=== PATIENT | female | born 1955 | race Caucasian/White ===

== ENCOUNTER → 2019-04-19 10:18 | Outpatient (BNVA) | payer BC, SELFPAY | PROVIDERS: Family Provider Registered Nurse; PCP Registered Nurse; Visit Provider Registered Nurse | DX: I82.461 Acute embolism and thrombosis of right calf muscular vein (principal); E53.8 Deficiency of other specified B group vitamins; E03.9 Hypothyroidism, unspecified | CPT/HCPCS: 82607; 84443 ==

== ENCOUNTER 2019-04-29 09:46 | Emergency (ER) | payer BC, SELFPAY ==
[2019-04-29 10:21] VITALS: BP 113/85; PULSE 75; RESP 20; TEMP 36.7; O2SAT 95; BMI 27.4
--- NOTE | 2019-04-29 10:30 | ED_ITS ---
Entered by Jack Enriquez, acting as scribe for Apr 29, 2019 09:46 HPI - Chest Pain General: Chief Complaint: Chest Pain Stated Complaint: Chest pains Time Seen by Provider: 04/29/19 10:30 History of Present Illness: HPI narrative: 64 yo female presents with chest pain. Pt has leg swelling. Pt has alzheimers and she thinks her leg is broken. Son states that pt has been complaining of pain in her right leg for a few days. Patient was recently diagnosed with a DVT in her right leg. There is also 1 episode where she complained about some chest discomfort. She is currently taking Eliquis. MD complaint: chest pain Onset (ago): day(s) Timing of current episode: constant Pain radiation: none Severity: moderate Quality: aching Associated symptoms: Reports abdominal pain, dyspnea, fever(s) and nausea; Deny palpitations, syncope or vomiting Review of Systems Const: Reports: fever; Denies: chills, body aches, fatigue, malaise or night sweats Eyes: Denies: change in vision or blurry vision ENMT: Denies: throat pain, oral sores/lesions, dental pain, nasal discharge or nasal congestion Card: Reports: chest pain; Denies: palpitations, irregular heart rhythm, edema, syncope, shortness of breath on exertion, shortness of breath when lying down or leg pain with exertion Resp: Reports: shortness of breath; Denies: productive cough, non-productive cough or wheezing GI: Reports: abdominal pain and nausea; Denies: vomiting, vomiting blood, coffee grounds in vomit, difficulty swallowing, heartburn/indigestion, diarrhea, constipation, cramping, blood in stool or black tarry stool : Denies: flank pain, painful urination, urinary frequency, urinary urgency, urinary incontinence or blood in urine Musc: Reports: extremity pain (right leg pain); Denies: neck pain, back pain, extremity swelling, joint pain or joint swelling Skin/Breast: Denies: rash, itching or redness Neuro: Denies: headache, numbness in extremities, weakness in extremities, changes in sensation, lack of coordination, difficulty walking, frequent falls, dizziness, vertigo or confusion Psych: Denies: anxiety, depression, loss of interest, visual hallucinations, auditory hallucinations, suicidal ideation or homicidal ideation Endo: Denies: excessive urination, excessive thirst, tired all the time or cold intolerance Rip/Lymph: Denies: easy bruising, easy bleeding, petechiae, enlarged lymph nodes or tender lymph nodes PFSH ED PFSH: Statuses (acute, chronic, etc) shown below reflect problem list status as previously entered and may not be historically accurate Medical History Alzheimers disease (Acute) B12 deficiency (Chronic) Constipation (Chronic) Hypothyroid (Chronic) Surgical History Hx of appendectomy (Acute) Hx of section (Acute) Hx of tubal ligation (Acute) Social History Smoking and tobacco status: never smoked Physical Exam Const: COMMON NORMALS: average body habitus GENERAL APPEARANCE: cooperative, comfortable, well kempt and well developed NUTRITIONAL APPEARANCE: not obese ORIENTATION/CONSCIOUSNESS: Yes awake HENMT: COMMON NORMALS: normocephalic, head/scalp atraumatic, EAC's normal, TM's normal bilaterally, external nose normal, moist oral mucous membranes and oropharynx normal HEAD & SCALP: normocephalic and atraumatic NOSE: external nose normal EXTERNAL AUDITORY CANAL: EAC's normal TYMPANIC MEMBRANE: TM's normal bilaterally MOUTH: oral and palatal mucosa normal, lip normal and tongue normal THROAT: posterior oropharynx normal and tonsils normal Eye: COMMON NORMALS: PERRL, EOMs intact bilaterally, conjunctivae normal and no scleral icterus CONJUNCTIVA: Yes conjunctivae normal PUPIL: Yes PERRL Neck/C-Spine: COMMON NORMALS: full ROM, no lymphadenopathy, supple, no meningeal signs and thyroid normal THYROID: thyroid normal and asymmetrical Lymph: LYMPHATIC: no lymphadenopathy noted Resp: COMMON NORMALS: normal respiratory effort, no retractions, no use of accessory muscles and clear to auscultation bilaterally AUSCULTATION: clear to auscultation bilaterally Cardio: COMMON NORMALS: regular rate and regular rhythm RATE: regular rate RHYTHM: regular rhythm HEART SOUNDS: no murmurs GI: COMMON NORMALS: normal to inspection, nondistended, normoactive bowel sounds, soft to palpation and no hepatosplenomegaly PALPATION: Yes soft and Yes no hepatosplenomegaly : COMMON NORMALS: Yes no CVA tenderness BLADDER/KIDNEY EXAM: Yes no CVA tenderness Back/Pelvis: COMMON NORMALS: no CVA tenderness LUMBAR SPINE/LOWER BACK: Yes normal to inspection Extremity: COMMON NORMALS: no clubbing, cyanosis or edema, no calf tenderness and no pedal edema Neuro: MENINGEAL SIGNS: Yes no meningeal signs Psych: APPEARANCE: Yes well kempt Skin: COMMON NORMALS: no rashes or lesions noted and skin turgor normal GENERAL SKIN EXAM: no rashes or lesions noted and turgor normal Course ED course: CTA chest negative. Continue Audelia discussed different possibilities of also start her on Pepcid for now. We will recheck with her primary care doctor within the week. If worsens or change return. Discussed possibly doing stress testing for cardiac evaluation however given her Alzheimer's state family did not feel they would be likely to pursue much regardless of the results. Additionally she would most likely need to be sedated in order to do the scan portion of the sestamibi stress test which they also were not inclined to do. Vital Signs: Vital signs: Vital Signs Temperature 98.1 F 04/29/19 10:21 Pulse Rate 78 04/29/19 13:26 Respiratory Rate 18 04/29/19 13:26 Blood Pressure 146/94 04/29/19 13:26 Pulse Oximetry 97 04/29/19 13:26 MDM - Chest Pain Lab Data: Labs: Lab Results 04/29/19 04/29/19 Range/Units 10:50 10:50 WBC 5.0 (4.0-10.0) 10^3/ uL RBC 4.48 (4.1-5.3) 10^6/u L Hgb 13.4 (11.5-15.3) g/dL Hct 40.8 (37.0-47.0) % MCV 91.1 (81-99) fL MCH 29.9 (28.0-34.0) pg MCHC 32.8 (30.0-36.0) g/dL RDW 12.5 (12.1-15.1) % Plt Count 203 (130-400) 10^3/c mm MPV 9.9 (7.4-10.4) fL Neut % (Auto) 65.8 % Lymph % (Auto) 23.2 % [place] % (Auto) 6.0 % Eos % (Auto) 3.8 % Baso % (Auto) 1.2 % Neut # (Auto) 3.3 (1.8-7.7) 10^3/u L Lymph # (Auto) 1.2 (0.8-4.8) 10^3/u L [place] # (Auto) 0.3 (0.2-0.9) 10^3/u L Eos # (Auto) 0.2 (0.0-0.8) 10^3/u L Baso # (Auto) 0.1 (0.0-0.1) 10^3/u L Nucleated RBC % (a uto) 0 % Nucleated RBCs # 0.0 /100WBC Sodium 141 (136-145) mmol/L Potassium 4.2 (3.5-5.1) mmol/L Chloride 104 (98-107) mmol/L Carbon Dioxide 25 (22-29) mmol/L Anion Gap 16.2 (5-19) BUN 15 (8-23) mg/dL Creatinine 0.8 (0.5-0.9) mg/dL GFR Calculation 72.4 L (90-130) mL/min Glucose 127 H (74-106) mg/dL Calcium 10.0 (8.5-10.5) mg/dL Total Bilirubin 0.4 (0.15-1.2) mg/dL AST 18 (0-32) U/L ALT 13 (0-33) U/L Alkaline Phosphata se 80 (35-105) IU/L Total Protein 6.4 L (6.6-8.7) g/dL Albumin 4.4 (3.5-5.2) g/dL Globulin 2.0 (1.3-4.6) g/dL Imaging Data^: CT Chest: Radiologist's impression: Patient: Clarissa Mcfadden Unit #: [id number] : 1955 Age/Sex: 64 / F ADM Date: 04/29/19 Loc: ER Room/Bed: Attending Dr: Ordering Provider/Ordering MD: Rogelio Rodríguez DO Date of Service: 04/29/19 Procedure(s): CT angio chest PE protcl [id number] Accession Number(s): [id number] Report Number: [id number] WS: [id number] CT CHEST ANGIOGRAPHY WITH REFORMATS HISTORY: dyspnea TECHNIQUE: Contiguous axial images are obtained through the chest during arterial injection of intravenous contrast. Images are reconstructed to evaluate the pulmonary arteries. MIP imaging also reviewed. All CT scans at [facility] use at least one of these dose optimization techniques: automated exposure control; mA and/or kV adjustment per patient size (includes targeted exams where dose is matched to clinical indication); or iterative reconstruction. CONTRAST: Omnipaque 350; 95 mL IV. DLP: 497.1 mGy.cm COMPARISON: None available. Very good opacification of the pulmonary arteries. No filling defects or pulmonary emboli. Pulmonary artery size is normal. Mild atherosclerosis of the thoracic aorta. No aneurysm or dissection is appreciated. Mild enlargement of the heart chambers. No pericardial or pleural effusions. Subsegmental atelectasis at the lung bases. No pulmonary nodule, mass or pneumonia. No mediastinal or hilar lymph nodes. Normal adrenal glands. Gallbladder is very slightly prominent with no adjacent inflammation or wall thickening. No bile duct dilatation. Small hiatal hernia. Moderate increase in thoracic kyphosis. Bones are osteopenic. No fractures. CT/CT angio chest PE protcl [id number] IMPRESSION: 1. No pulmonary embolism. 2. No pneumonia. 3. Subsegmental bibasilar atelectasis. 4. Mild cardiomegaly. Dictated By: Crystal Mcclain DO Signed By: Crystal Mcclain DO Signed Date/Time: 04/29/19 1159 DD/ 1153 Discharge Plan Discharge Patient Disposition: Home, Self-Care Clinical Impression: Atypical chest pain, Alzheimers disease, Chest pain due to gastrointestinal reflux disease, DVT (deep venous thrombosis) Condition: Stable Prescriptions: New Pepcid 20 mg tablet 20 mg PO Q12H 84 Days Qty: 168 RF: 0 No Action citalopram 20 mg tablet 20 mg PO DAILY RF: 0 acetaminophen [Tylenol Extra Strength] 500 mg tablet 500 mg PO Q4H PRN (Reason: Pain) RF: 0 olanzapine [Zyprexa] 15 mg tablet 15 mg PO BID RF: 0 Xarelto 20 mg tablet 20 mg PO DAILY Qty: 90 RF: 0 levothyroxine 112 mcg capsule 112 mcg PO DAILY Qty: 90 RF: 1 Enema Disposable 19-7 gram/118 mL Enema 118 ml OH DAILY PRN (Reason: Constipation) RF: 0 Eliquis 5 mg Tablet 5 mg PO BID RF: 0 Discharge Orders: Discharge Order (Routine); Ordered 04/29/19 Ordered By: Rogelio Rodríguez Referrals: Félix Adam, WEBSITE DEVELOPER [Primary Care Provider] - Discharge Diet: Usual diet Discharge Activity: Resume usual activity Activity Restrictions/Additional Instructions: Continue current medications, add Pepcid 20 mg twice daily. Follow-up with your primary care doctor return if you have worsening or change of symptoms. Discharge Date/Time: 04/29/19 13:28 Coding Level of Care Code ED Pantograph Operator for Chg Fwd Exam Problem Focused The documentation recorded by the Mina ng Kialy, accurately reflects the service I personally performed and the decisions made by Anne jennings Curtis L, DO Apr 29, 2019 09:46
--- NOTE | 2019-04-29 10:43 | CT_ITS ---
WS: [id number] CT CHEST ANGIOGRAPHY WITH REFORMATS HISTORY: dyspnea TECHNIQUE: Contiguous axial images are obtained through the chest during arterial injection of intrav enous contrast. Images are reconstructed to evaluate the pulmonary arteries. MIP imaging also reviewe d. All CT scans at [facility] use at least one of these dose optimization techniques: aut omated exposure control; mA and/or kV adjustment per patient size (includes targeted exams where dose is matched to clinical indication); or iterative reconstruction. CONTRAST: Omnipaque 350; 95 mL IV. DLP: 497.1 mGy.cm COMPARISON: None available. Very good opacification of the pulmonary arteries. No filling defects or pulmonary emboli. Pulmonary artery size is normal. Mild atherosclerosis of the thoracic aorta. No aneurysm or dissection is appre ciated. Mild enlargement of the heart chambers. No pericardial or pleural effusions. Subsegmental ate lectasis at the lung bases. No pulmonary nodule, mass or pneumonia. No mediastinal or hilar lymph nod es. Normal adrenal glands. Gallbladder is very slightly prominent with no adjacent inflammation or wall t hickening. No bile duct dilatation. Small hiatal hernia. Moderate increase in thoracic kyphosis. Bones are osteopenic. No fractures. CT/CT angio chest PE protcl [id number] IMPRESSION: 1. No pulmonary embolism. 2. No pneumonia. 3. Subsegmental bibasilar atelectasis. 4. Mild cardiomegaly.
[2019-04-29 10:57] LABS: Basophils # 0.1 10^3/uL (0.0-0.1); Basophils % 1.2 %; Eosinophils # 0.2 10^3/uL (0.0-0.8); Eosinophils % 3.8 %; Hematocrit 40.8 % (37.0-47.0); Hemoglobin 13.4 g/dL (11.5-15.3); Lymphocytes # 1.2 10^3/uL (0.8-4.8); Lymphocytes % 23.2 %; Mean Corpuscular HGB Conc 32.8 g/dL (30.0-36.0); Mean Corpuscular Hemoglobin 29.9 pg (28.0-34.0); Mean Corpuscular Volume 91.1 fL (81-99); Mean Platelet Volume 9.9 fL (7.4-10.4); Monocytes # 0.3 10^3/uL (0.2-0.9); Neutrophils # 3.3 10^3/uL (1.8-7.7); Neutrophils % 65.8 %; Nucleated Red Blood Cells % 0 %; Platelet Count 203 10^3/cmm (130-400); Red Blood Count 4.48 10^6/uL (4.1-5.3); Red Cell Distribution Width 12.5 % (12.1-15.1)
[2019-04-29 11:14] LABS: Alanine Aminotransferase 13 U/L (0-33); Albumin Level 4.4 g/dL (3.5-5.2); Alkaline Phosphatase 80 IU/L (35-105); Anion Gap 16.2 (5-19); Aspartate Amino Transferase 18 U/L (0-32); Blood Urea Nitrogen 15 mg/dL (8-23); Carbon Dioxide 25 mmol/L (22-29); Chloride 104 mmol/L (98-107); Creatinine Clr Calc Pharmacy 70.2792; Glomerular Filtration Rate 72.4 mL/min (90-130); Glucose 127 mg/dL (74-106); Potassium 4.2 mmol/L (3.5-5.1); Sodium 141 mmol/L (136-145); Total Bilirubin 0.4 mg/dL (0.15-1.2); Total Protein 6.4 g/dL (6.6-8.7)
[2019-04-29] MEDS: iohexol 350 mg/mL 100 mL Btl IV (11:52)
[2019-04-29 13:26] VITALS: BP 146/94; PULSE 78; RESP 18; O2SAT 97
== END 2019-04-29 13:28 | disposition home or self-care (01) ==
PROVIDERS: Emergency Provider Family Medicine; Family Provider Registered Nurse; PCP Registered Nurse
DX: R07.89 Other chest pain (principal); K21.9 Gastro-esophageal reflux disease without esophagitis; G30.9 Alzheimer's disease, unspecified; F02.80 Dementia in other diseases classified elsewhere, unspecified severity, without behavioral disturbance, psychotic disturbance, mood disturbance, and anxiety; I82.409 Acute embolism and thrombosis of unspecified deep veins of unspecified lower extremity; Z79.01 Long term (current) use of anticoagulants; E03.9 Hypothyroidism, unspecified
CPT/HCPCS: 71275; 80053; 85025; 99281; Q9967

== ENCOUNTER → 2019-05-03 10:09 | Outpatient (BNVA) | payer BC, SELFPAY | PROVIDERS: Family Provider Registered Nurse; PCP Registered Nurse; Visit Provider Specialist | DX: G30.0 Alzheimer's disease with early onset (principal); F02.81 Dementia in other diseases classified elsewhere, unspecified severity, with behavioral disturbance | CPT/HCPCS: 99213 ==